=== PATIENT | female | born 1985 | race Caucasian/White ===

== ENCOUNTER 2018-02-02 | Emergency (ER) | payer BC ==
[~2018-02-02] VITALS: Ht 152.4 cm; Wt 47.6 kg
[2018-02-02] MEDS ORDERED: ALBUTEROL SULFATE 2.5 MG/ 0.5 ML NEBU NEB ONE (00:45)
[2018-02-02] MEDS ORDERED: ALBUTEROL SULFATE 2.5 MG/3 ML NEBU ONE (00:46)
--- NOTE | 2018-02-02 02:00 | NUR ---
Patient discharged to home in stable conditon. Written and verbal after care instructions given. Patient verbalizes understanding of instructions.
[2018-02-02 02:01] VITALS: BP 114/76
[2018-02-02 02:05] LABS: *URINE HCG, QUAL NEGATIVE (NEGATIVE)
== END 2018-02-02 02:01 | disposition home or self-care (01) ==
LOC: ER 00:05
DX: J40 Bronchitis, not specified as acute or chronic (principal); J70.5 Respiratory conditions due to smoke inhalation
CPT/HCPCS: 71045; 84703; 93005; A4663